=== PATIENT | male | born 1990 | race Caucasian/White ===

== ENCOUNTER 2019-05-18 15:52 | Emergency (ER) | payer OTHER ==
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
[2019-05-18] MEDS ORDERED: ONDANSETRON 4 MG TAB.RAPDIS PO ONE (16:33)
--- NOTE | 2019-05-18 18:01 | RADIOLOGY REPORT (SQ) ---
EXAM DESCRIPTION: CT HEAD WITHOUT COMPLETED DATE/TIME: 05/18/2019 4:29 pm REASON FOR STUDY: Head injury nausea and vomiting COMPARISON: None. TECHNIQUE: Axial images acquired through the brain without intravenous contrast. Images reviewed wi th bone, brain and subdural windows. Images stored on PACS. All CT scanners at this facility use dose modulation, iterative reconstruction, and/or weight based d osing when appropriate to reduce radiation dose to as low as reasonably achievable (ALARA). [facility]: Dose Right [facility]: CareDose [facility]: Dose Right [facility]: Teradose 4D [facility]: [employer] RADIATION DOSE: CT Rad equipment meets quality standard of care and radiation dose reduction techniq ues were employed. CTDIvol: 53.2 mGy. DLP: 964 mGy-cm. mGy. LIMITATIONS: None. FINDINGS: VENTRICLES: Normal size and contour. CEREBRUM: No masses. No hemorrhage. No midline shift. No evidence for acute infarction. Normal gra y/white matter differentiation. No areas of low density in the white matter. CEREBELLUM: No masses. No hemorrhage. No alteration of density. No evidence for acute infarction. EXTRAAXIAL SPACES: No fluid collections. No masses. ORBITS AND GLOBE: No intra- or extraconal masses. Normal contour of globe without masses. CALVARIUM: No fracture. PARANASAL SINUSES: Mucous retention cyst posteromedial right maxillary sinus. No air-fluid levels. Remaining paranasal sinuses and mastoid air cells are clear. SOFT TISSUES: No mass or hematoma. OTHER: No other significant finding. IMPRESSION: 1. No acute intracranial hemorrhage, mass, or evidence of acute territorial infarct. EVIDENCE OF ACUTE STROKE: NO. COMMENT: Quality ID # [id number]: Final reports with documentation of one or more dose reduction techniques (e.g., Automated exposure control, adjustment of the mA and/or kV according to patient size, use of iterative reconstruction technique) TECHNICAL DOCUMENTATION: JOB ID: [id number] [employer]- All Rights Reserved Reading location - IP/workstation name: [email or web address]
[2019-05-18 18:40] VITALS: BP 133/70
== END 2019-05-18 18:36 | disposition home or self-care (01) ==
LOC: ER 15:52
DX: S09.90XA Unspecified injury of head, initial encounter (principal); R51 Headache; M79.603 Pain in arm, unspecified; M25.519 Pain in unspecified shoulder; V49.40XA Driver injured in collision with unspecified motor vehicles in traffic accident, initial encounter; R11.2 Nausea with vomiting, unspecified; Z87.891 Personal history of nicotine dependence
CPT/HCPCS: 99284; 70450; S0119

== ENCOUNTER 2020-02-16 20:54 | Emergency (ER) | payer SELFPAY ==
[2020-02-16 21:22] VITALS: BP 135/77
[2020-02-16] MEDS ORDERED: ACETAMINOPHEN 325 MG TABLET PO ONE (22:08)
[2020-02-16] MEDS ORDERED: NORMAL SALINE 1000 ML 1,000 ML IV ONE (22:09)
--- NOTE | 2020-02-16 22:09 | ER Document Report ---
ED Medical Screen (RME) - General Chief Complaint: General Weakness Stated Complaint: VOMITING BLOOD/PAIN IN SIDE/HEADACHE/FATIGUE Time Seen by Provider: 02/16/20 22:01 Information source: Patient Notes: Patient presents complaining of vomiting 5 days ago with no episodes since. Patient states he has had persistent left side pain and occasional dizziness with decreased energy and headache. Patient reports chronic cough. Patient also reports dark urine. Patient has a history of depression. Patient denies any fever. I have greeted and performed a rapid initial assessment of this patient. A comprehensive ED assessment and evaluation of the patient, analysis of test results and completion of the medical decision making process will be conducted by additional ED providers. - Related Data Allergies/Adverse Reactions: No Known Allergies Allergy (Verified 05/18/19 16:26) Past Medical History - Social History Family history: Reviewed & Not Pertinent Musculoskeltal Medical History: Reports Hx Musculoskeletal Trauma Psychiatric Medical History: Reports: Hx Bipolar Disorder Traumatic Medical History: Reports: Hx Fractures - Left index finger - Immunizations Immunizations up to date: Yes Hx Diphtheria, Pertussis, Tetanus Vaccination: Yes Physical Exam - Vital signs Vitals: Temp Pulse Resp BP Pulse Ox 98.3 F 67 20 135/77 H 100 02/16/20 21:20 02/16/20 21:20 02/16/20 21:20 02/16/20 21:20 02/16/20 21:20 - Abdominal Tenderness: Tender - Lateral side tenderness Course - Vital Signs Vital signs: Temp Pulse Resp BP Pulse Ox 98.3 F 67 20 135/77 H 100 02/16/20 21:20 02/16/20 21:20 02/16/20 21:20 02/16/20 21:20 02/16/20 21:20
--- NOTE | 2020-02-16 23:26 | RADIOLOGY REPORT (SQ) ---
CLINICAL INDICATION: cough, L side pain. TECHNIQUE: A single portable AP view was obtained of the chest at 2243 hours. COMPARISON: None. FINDINGS: The cardiomediastinal silhouette is normal. The lungs are grossly clear. No evidence of effusion or pneumothorax. The visualized bones are unremarkable. IMPRESSION: No evidence of active intrathoracic disease. . The cause of the patient's left sided chest pain is not identified on this examination.
== END 2020-02-17 01:00 | disposition left against medical advice (07) ==
LOC: ER 20:54
DX: K92.0 Hematemesis (principal); R42 Dizziness and giddiness; R51.9 Headache, unspecified; R10.819 Abdominal tenderness, unspecified site; Z53.20 Procedure and treatment not carried out because of patient's decision for unspecified reasons
CPT/HCPCS: 71045; 99281